=== PATIENT | female | born 1985 | race Caucasian/White ===

== ENCOUNTER 2020-12-22 19:21 | Emergency (ER) | payer MEDICAID ==
[~2020-12-22] VITALS: Ht 157.5 cm; Wt 61.2 kg
[2020-12-22 19:28] VITALS: BP_SYST 126
--- NOTE | 2020-12-22 19:38 | NUR ---
Patient to ER bed 3 to gown for evaluation. Side rails up. Report given to JOSY German.
--- NOTE | 2020-12-22 19:40 | NUR ---
ER at bedside examining patient.
--- NOTE | 2020-12-22 19:45 | NUR ---
AWAKE, ALERT. STATES THAT SHE HAD BEEN FEELING SOME DISCOMFORT IN HER LEFT LATERAL LEG," LIKE SOMEONE SLAPPED A HEATING PAD ON IT" NO REDNESS OR SWELLING. DENIES PAIN.
[2020-12-22 20:03] LABS: BASOPHILS % (AUTO) 0.5 % (0.0-2.0); EOSINOPHILS # (AUTO) 0.3 K/uL (0.0-0.4); EOSINOPHILS % (AUTO) 4.1 % (0.0-4.0); HEMATOCRIT 38.2 % (36-48); HEMOGLOBIN 12.7 g/dL (12.0-16.0); LYMPHOCYTES # (AUTO) 2.8 K/uL (1.0-5.5); LYMPHOCYTES % (AUTO) 41.8 % (20.5-51.5); MEAN CORPUSCULAR HEMOGLOBIN 30 pg (27-31); MEAN CORPUSCULAR HGB CONC 33 % (32-36); MEAN CORPUSCULAR VOLUME 92 fL (79.0-98.0); MONOCYTES # (AUTO) 0.6 K/uL (0.0-1.0); NEUTROPHILS % (AUTO) 44.6 % (40.0-70.0); PLATELET COUNT (AUTO) 217 K/uL (130-430); RED BLOOD CELL COUNT(AUTO) 4.17 MIL/uL (4.2-6.2); RED CELL DISTRIBUTION WIDTH 12.8 % (9.0-15.0); WHITE BLOOD COUNT (AUTO) 6.8 K/uL (4.8-10.8)
[2020-12-22 20:18] LABS: ANION GAP 7 (5-15); CALCIUM 8.8 mg/dL (8.4-11.0); CHLORIDE 102 mmol/L (98-107); CREATININE 0.82 mg/dL (0.55-1.30); GLUCOSE 100 mg/dL (70-99); POTASSIUM 3.3 mmol/L (3.5-5.1); SODIUM SERUM 137 mmol/L (136-145); UREA NITROGEN, BLOOD 12 mg/dL (8-21)
[2020-12-22 20:33] LABS: ALANINE AMINOTRANSFERASE 23 U/L (12-78); ASPARTATE AMINOTRANSFERASE 23 U/L (10-37); TOTAL BILIRUBIN 0.4 mg/dL (0.0-1.0)
[2020-12-22 20:36] LABS: GFR AFRICAN AMERICAN 103 mL/min (>90)
[2020-12-22 20:37] LABS: C-REACTIVE PROTEIN QUANT < 0.2 mg/dL (0-0.5)
[2020-12-22 20:52] LABS: PROTHROMBIN TIME 9.8 SECS (9.5-12.5)
[2020-12-22] MEDS ORDERED: IBUP-1969 PO (21:17)
[2020-12-22] MEDS ORDERED: HYDR-3917 PO (21:17)
[2020-12-22 21:25] VITALS: BP_SYST 126
--- NOTE | 2020-12-22 21:25 | NUR ---
Patient given written and verbal discharge instructions and verbalizes understanding. ER DR MERLYN KIM discussed with patient the results and treatment provided. Patient in stable condition. ID arm band removed. Rx of NORCO AND IBUPROFEN given. Patient educated on pain management and to follow up with PMD. Pain Scale . Opportunity for questions provided and answered. Medication side effect fact sheet provided.
== END 2020-12-22 21:25 | disposition home or self-care (01) ==
LOC: SED 19:21
DX: R25.2 Cramp and spasm (principal); Z79.899 Other long term (current) drug therapy
CPT/HCPCS: 36415; 80053; 83605; 85025; 85610-TC; 85730-TC; 86140; 93971; 99284